=== PATIENT | female | born 1985 | race Hispanic/Latino ===

== ENCOUNTER 2017-04-15 16:24 | Emergency (ER) | payer OTHER ==
[~2017-04-15] VITALS: Ht 162.6 cm; Wt 93.2 kg
[~2017-04-15 16:24] MED LIST: CIPRO500 MG OR; CIPROFLOXACN500 MG PO; DILAUDID2 MG OR; LEVAQUIN500 MG PO; LORTAB 7.5 PO; LORTAB5 OR; NO; PHENERGAN25 MG RE; TRI-SPRINTEC; VISTARIL25 MG PO
[2017-04-15 17:21] LABS: URINE BILIRUBIN - DIPSTICK NEGATIVE (NEGATIVE); URINE BLOOD DIPSTICK MODERATE (NEGATIVE); URINE CLARITY TURBID; URINE COLOR YELLOW; URINE GLUCOSE - DIPSTICK NEGATIVE (NEGATIVE); URINE KETONE NEGATIVE (NEGATIVE); URINE LEUK ESTERASE NEGATIVE (Negative); URINE NITRITE - DIPSTICK POSITIVE (Negative); URINE PH 5.5 (4.5-8.0); URINE PROTEIN - DIPSTICK TRACE mg/dL (NEG-TRACE); URINE SPECIFIC GRAVITY >=1.030
[2017-04-15 17:22] LABS: HEMATOCRIT 38.1 % (37.0-47.0); HEMOGLOBIN 12.7 g/dl (12.0-16.0); IMMATURE GRANULOCYTES 1.1 % (0.0-1.0); MEAN CELL VOLUME 95.5 fL CALC (80.0-100.0); MEAN CORPUSCULAR HGB 31.8 pG CALC (26.0-32.0); MEAN CORPUSCULAR HGB CONC 33.3 g/L CALC (32.0-36.0); NEUT# 5.94 thou/uL (2.00-7.15); RED BLOOD COUNT 3.99 mill/uL (4.20-5.60); RED CELL DISTRI WIDTH 13.8 % (11.5-15.5)
[2017-04-15 17:41] LABS: URINE BACTERIA MANY hpf; URINE CALCIUM OXALATE CRYSTALS MANY lpf; URINE RBC 25-50 RBC/hpf (0-5); URINE SQUAMOUS EPITHELIAL CELL FEW EPI/hpf (0-FEW)
[2017-04-15 17:53] LABS: ALBUMIN 3.5 g/dL (3.2-5.0); ALKALINE PHOSPHATASE 113 u/l (38-126); ANION GAP 12 (6-22 (CALC)); BILIRUBIN, TOTAL 0.6 mg/dL (0.0-1.4); BUN 11 mg/dL (7-17); BUN/CREATININE RATIO 20 (12-20 (CALC)); CALCIUM 9.1 mg/dL (8.4-10.2); CARBON DIOXIDE 23 mmol/l (22-30); CHLORIDE 106 mmol/l (95-108); CREATININE 0.6 mg/dL (0.5-1.0); GFR > 60 ML/MIN (>=60 (CALC)); GFR FOR AFR.AMER. > 60 ML/MIN (>=60 (CALC)); GLUCOSE 79 mg/dL (65-105); POTASSIUM 4.1 mmol/l (3.5-5.1); SGOT/AST 35 u/l (14-36); SGPT/ALT 24 u/l (9-52); SODIUM 137 mmol/l (137-146); TOTAL PROTEIN 6.5 g/dL (6.3-8.2)
[2017-04-15 18:05] LABS: MYOGLOBIN 35 ng/mL (0 - 62)
[2017-04-15] MEDS ORDERED: KEFLEX500 M1 PO (19:02)
[2017-04-15 19:35] LABS: BARBITURATES NEGATIVE (NEGATIVE); COCAINE NEGATIVE (NEGATIVE); METHADONE NEGATIVE (NEGATIVE); OXCYCODONE NEGATIVE (NEGATIVE); TETRAHYDROCANNABIONOL NEGATIVE (NEGATIVE); TRICYLIC ANTIDEPRESSANTS NEGATIVE (NEGATIVE)
[2017-04-15 20:04] VITALS: BP 120/78
[2017-04-15 20:30] VITALS: BP 109/70
== END 2017-04-15 21:25 | disposition home or self-care (01) | DRG 781 ==
LOC: ED 16:24 → OBOP 17:33 → ED 19:18
PROVIDERS: Emergency Medicine
DX: O26.893 Other specified pregnancy related conditions, third trimester (principal); Z3A.35 35 weeks gestation of pregnancy; O23.43 Unspecified infection of urinary tract in pregnancy, third trimester

== ENCOUNTER 2017-05-20 21:23 | Inpatient (IN) | payer OTHER ==
[~2017-05-20] VITALS: Ht 165.1 cm; Wt 96.2 kg
[~2017-05-20 21:23] MED LIST changes: +KEFLEX500 M1 PO
[2017-05-20 22:09] LABS: URINE BILIRUBIN - DIPSTICK NEGATIVE (NEGATIVE); URINE BLOOD DIPSTICK MODERATE (NEGATIVE); URINE CLARITY SLIGHT CLOUDY; URINE COLOR YELLOW; URINE GLUCOSE - DIPSTICK NEGATIVE (NEGATIVE); URINE KETONE NEGATIVE (NEGATIVE); URINE LEUK ESTERASE NEGATIVE (NEGATIVE); URINE NITRITE - DIPSTICK NEGATIVE (Negative); URINE PH 5.5 (4.5-8.0); URINE PROTEIN - DIPSTICK NEGATIVE (NEG-TRACE); URINE UROBILINOGEN - DIPSTICK 0.2 E.U./dL (0.2)
[2017-05-20 22:20] LABS: BARBITURATES NEGATIVE (NEGATIVE); COCAINE NEGATIVE (NEGATIVE); METHADONE NEGATIVE (NEGATIVE); OXCYCODONE NEGATIVE (NEGATIVE); TETRAHYDROCANNABIONOL NEGATIVE (NEGATIVE); TRICYLIC ANTIDEPRESSANTS NEGATIVE (NEGATIVE); URINE BACTERIA FEW hpf; URINE RBC 0-2 RBC/hpf (0-5); URINE SQUAMOUS EPITHELIAL CELL FEW EPI/hpf (0-FEW); URINE WBC 0-2 WBC/hpf (0-5)
[2017-05-20 22:30] VITALS: BP 151/95
[2017-05-21] VITALS (14 sets, daily range): BP systolic 113–146; BP diastolic 64–87
[2017-05-21] MEDS ORDERED: PRENATAL1 TA1 (02:13)
[2017-05-21 08:35] LABS: HEMATOCRIT 40.8 % (37.0-47.0); IMMATURE GRANULOCYTES 0.7 % (0.0-1.0); MEAN CELL VOLUME 94.2 fL CALC (80.0-100.0); MEAN CORPUSCULAR HGB 32.3 pG CALC (26.0-32.0); MEAN CORPUSCULAR HGB CONC 34.3 g/L CALC (32.0-36.0); NEUT# 5.81 thou/uL (2.00-7.15); RED BLOOD COUNT 4.33 mill/uL (4.20-5.60); RED CELL DISTRI WIDTH 14.6 % (11.5-15.5)
[2017-05-21 08:54] LABS: ALBUMIN 3.3 g/dL (3.2-5.0); ALKALINE PHOSPHATASE 155 u/l (38-126); ANION GAP 11 (6-22 (CALC)); BILIRUBIN, TOTAL 0.5 mg/dL (0.0-1.4); BUN 6 mg/dL (7-17); BUN/CREATININE RATIO 10 (12-20 (CALC)); CALCIUM 9.1 mg/dL (8.4-10.2); CARBON DIOXIDE 21 mmol/l (22-30); CHLORIDE 107 mmol/l (95-108); CREATININE 0.6 mg/dL (0.5-1.0); GFR > 60 ML/MIN (>=60 (CALC)); GFR FOR AFR.AMER. > 60 ML/MIN (>=60 (CALC)); GLUCOSE 72 mg/dL (65-105); POTASSIUM 4.2 mmol/l (3.5-5.1); SGOT/AST 24 u/l (14-36); SGPT/ALT 29 u/l (9-52); SODIUM 135 mmol/l (137-146)
[2017-05-22 05:30] VITALS: BP 108/55
[2017-05-22 05:42] LABS: HEMATOCRIT 35.3 % (37.0-47.0); HEMOGLOBIN 11.9 g/dl (12.0-16.0); MEAN CELL VOLUME 95.7 fL CALC (80.0-100.0); MEAN CORPUSCULAR HGB 32.2 pG CALC (26.0-32.0); MEAN CORPUSCULAR HGB CONC 33.7 g/L CALC (32.0-36.0); NEUT# 5.97 thou/uL (2.00-7.15); RED BLOOD COUNT 3.69 mill/uL (4.20-5.60); RED CELL DISTRI WIDTH 14.8 % (11.5-15.5)
[2017-05-22 08:05] VITALS: BP 110/60
== END 2017-05-22 15:20 | disposition home or self-care (01) | DRG 775 ==
LOC: OBOP 21:23 → EDSTATUS 21:25 → OB 22:00 → OBOP 22:00 → OB 22:02 → OBOP 22:29 → OB 22:30
PROC: 10E0XZZ Delivery of Products of Conception, External Approach (ICD-10-PCS; principal; 2017-05-21)
DX: O80 Encounter for full-term uncomplicated delivery (principal); Z37.0 Single live birth; Z3A.39 39 weeks gestation of pregnancy

== ENCOUNTER 2022-02-27 23:47 | Emergency (ER) | payer OTHER ==
[~2022-02-27] VITALS: Ht 165.1 cm; Wt 97.3 kg
[~2022-02-27 23:47] MED LIST changes: +PRENATAL1 TA1
[2022-02-28 00:10] VITALS: BP 121/73
[2022-02-28 00:38] LABS: HEMATOCRIT 35.1 % (37.0-47.0); HEMOGLOBIN 11.4 g/dl (12.0-16.0); IMMATURE GRANULOCYTES 0.2 % (0.0-5.0); MEAN CELL VOLUME 93.1 fL CALC (80.0-100.0); MEAN CORPUSCULAR HGB 30.2 pG CALC (26.0-32.0); MEAN CORPUSCULAR HGB CONC 32.5 g/dL CAL (32.0-36.0); NEUT# 6.1 thou/uL (2.00-7.15); RED BLOOD COUNT 3.77 mill/uL (4.20-5.60); RED CELL DISTRI WIDTH 13.1 % (11.5-15.5)
[2022-02-28 00:41] LABS: URINE BILIRUBIN - DIPSTICK NEGATIVE (NEGATIVE); URINE BLOOD DIPSTICK SMALL (NEGATIVE); URINE COLOR YELLOW; URINE GLUCOSE - DIPSTICK NEGATIVE (NEGATIVE); URINE KETONE TRACE mg/dL (NEGATIVE); URINE PROTEIN - DIPSTICK NEGATIVE (NEG-TRACE); URINE SPECIFIC GRAVITY <=1.005; URINE UROBILINOGEN - DIPSTICK 0.2 E.U./dL (0.2)
[2022-02-28 00:44] LABS: URINE LEUK ESTERASE NEGATIVE (NEGATIVE); URINE NITRITE - DIPSTICK NEGATIVE (Negative)
[2022-02-28 00:49] LABS: URINE BACTERIA MODERATE hpf; URINE EPITHELIAL CELLS MODERATE EPI/hpf (0-FEW)
[2022-02-28 00:54] LABS: ALBUMIN 3.8 g/dL (3.2-5.0); ANION GAP 10 (6-22 (CALC)); BILIRUBIN, TOTAL 0.3 mg/dL (0.0-1.4); BUN 9 mg/dL (7-17); BUN/CREATININE RATIO 16 (12-20 (CALC)); CARBON DIOXIDE 23 mmol/l (22-30); CHLORIDE 103 mmol/l (95-108); CREATININE 0.5 mg/dL (0.5-1.0); GFR > 60 ML/MIN (>=60 (CALC)); GFR FOR AFR.AMER. > 60 ML/MIN (>=60 (CALC)); SGOT/AST 22 u/l (14-36); SODIUM 133 mmol/l (137-146); TOTAL PROTEIN 6.9 g/dL (6.3-8.2)
[2022-02-28] MEDS ORDERED: KEFLEX500 MG PO (00:56)
[2022-02-28 00:58] LABS: ALKALINE PHOSPHATASE 71 u/l (38-126)
[2022-02-28 01:14] VITALS: BP 121/73
== END 2022-02-28 02:05 | disposition home or self-care (01) | DRG 832 ==
LOC: ED 23:47
PROVIDERS: Emergency Medicine
DX: O23.42 Unspecified infection of urinary tract in pregnancy, second trimester (principal); N39.0 Urinary tract infection, site not specified; Z3A.14 14 weeks gestation of pregnancy

== ENCOUNTER 2023-02-22 19:45 | Emergency (ER) | payer OTHER ==
[2023-02-22] VITALS (14 sets, daily range): BP systolic 109–137; BP diastolic 54–82
[~2023-02-22] VITALS: Ht 165.1 cm; Wt 90.0 kg
[~2023-02-22 19:45] MED LIST changes: +KEFLEX500 MG PO
[2023-02-22 21:03] LABS: URINE BILIRUBIN - DIPSTICK NEGATIVE (NEGATIVE); URINE BLOOD DIPSTICK LARGE (NEGATIVE); URINE COLOR YELLOW; URINE GLUCOSE - DIPSTICK NEGATIVE (NEGATIVE); URINE KETONE NEGATIVE (NEGATIVE); URINE LEUK ESTERASE NEGATIVE (NEGATIVE); URINE PH 6.5 (4.5-8.0); URINE PROTEIN - DIPSTICK NEGATIVE (NEG-TRACE); URINE UROBILINOGEN - DIPSTICK 0.2 E.U./dL (0.2)
[2023-02-22 21:08] LABS: URINE NITRITE - DIPSTICK NEGATIVE (Negative)
[2023-02-22 21:11] LABS: BASO% 0.2 % (0-3); EOS% 0.6 % (0-8); HEMATOCRIT 37.8 % (37.0-47.0); HEMOGLOBIN 12.2 g/dl (12.0-16.0); IMMATURE GRANULOCYTES 0.1 % (0.0-5.0); LYMPH% 20.8 % (15-41); MEAN CELL VOLUME 91.1 fL CALC (80.0-100.0); MEAN CORPUSCULAR HGB 29.4 pG CALC (26.0-32.0); MEAN CORPUSCULAR HGB CONC 32.3 g/dL CAL (32.0-36.0); MONO% 7.2 % (2-13); NEUT# 7.65 thou/uL (2.00-7.15); NEUT% 71.1 % (42-76); RED BLOOD COUNT 4.15 mill/uL (4.20-5.60); RED CELL DISTRI WIDTH 13.2 % (11.5-15.5)
[2023-02-22 21:13] LABS: URINE BACTERIA RARE hpf; URINE SQUAMOUS EPITHELIAL CELL FEW EPI/hpf (0-FEW); URINE WBC 0-2 WBC/hpf (0-5)
[2023-02-22 21:29] LABS: ALBUMIN 4.2 g/dL (3.2-5.0); ANION GAP 13 (6-22 (CALC)); BILIRUBIN, TOTAL 0.4 mg/dL (0.02-1.3); BUN 13 mg/dL (7-17); BUN/CREATININE RATIO 21 (12-20 (CALC)); CARBON DIOXIDE 24 mmol/l (22-30); CHLORIDE 104 mmol/l (95-108); CREATININE 0.6 mg/dL (0.5-1.0); GFR FOR AFR.AMER. > 60 ML/MIN (>=60 (CALC)); GFR OTHER RACES > 60 ML/MIN (>=60 (CALC)); POTASSIUM 3.9 mmol/l (3.5-5.1); SGOT/AST 23 u/l (14-36); SODIUM 137 mmol/l (137-146); TOTAL PROTEIN 6.7 g/dL (6.3-8.2)
[2023-02-22 21:30] LABS: ALKALINE PHOSPHATASE 120 u/l (38-126)
[2023-02-22] MEDS ORDERED: AMOX/K CLAV875 M1 PO (23:43)
== END 2023-02-23 00:02 | disposition home or self-care (01) | DRG 603 ==
LOC: ED 19:45
PROVIDERS: Emergency Medicine
DX: L03.311 Cellulitis of abdominal wall (principal)

== ENCOUNTER 2023-02-26 20:00 | Emergency (ER) | payer OTHER ==
[~2023-02-26] VITALS: Ht 165.1 cm; Wt 87.0 kg
[~2023-02-26 20:00] MED LIST changes: +AMOX/K CLAV875 M1 PO
[2023-02-26] MEDS ORDERED: AMOX/K CLAV875 M1 PO (23:51)
[2023-02-26] MEDS ORDERED: PERCOCET 5/325M1 TAB PO (23:51)
[2023-02-26 23:58] VITALS: BP 130/93
== END 2023-02-27 | disposition home or self-care (01) | DRG 603 ==
LOC: ED 20:00
PROC: 0H9AXZZ Drainage of Inguinal Skin, External Approach (ICD-10-PCS; principal; 2023-02-26)
DX: L02.214 Cutaneous abscess of groin (principal); B95.7 Other staphylococcus as the cause of diseases classified elsewhere

== ENCOUNTER 2024-12-19 20:37 | Emergency (ER) | payer OTHER ==
[~2024-12-19] VITALS: Ht 165.1 cm; Wt 75.0 kg
[~2024-12-19 20:37] MED LIST changes: +PERCOCET 5/325M1 TAB PO
[2024-12-19 21:22] VITALS: BP 143/91
[2024-12-19] MEDS ORDERED: IBUPROFEN 800 MG/TAB PO ONE (21:50)
[2024-12-19] MEDS ORDERED: METHOCARBAMOL 500 MG/TAB PO ONE (21:50)
[2024-12-20 01:05] LABS: URINE BILIRUBIN - DIPSTICK Negative (NEGATIVE); URINE BLOOD DIPSTICK Large (NEGATIVE); URINE COLOR Yellow; URINE GLUCOSE - DIPSTICK Negative (NEGATIVE); URINE KETONE Negative (NEGATIVE); URINE LEUK ESTERASE Negative (NEGATIVE); URINE NITRITE - DIPSTICK Negative (Negative); URINE PH 5.5 (4.5-8.0); URINE PROTEIN - DIPSTICK 30 mg/dL (NEG-TRACE); URINE SPECIFIC GRAVITY 1.025; URINE UROBILINOGEN - DIPSTICK 0.2 E.U./dL (0.2)
[2024-12-20 01:11] LABS: URINE BACTERIA MODERATE hpf; URINE RBC 0-2 RBC/hpf (0-5); URINE SQUAMOUS EPITHELIAL CELL MANY EPI/hpf (0-FEW)
[2024-12-20] MEDS ORDERED: METHOCARBAMOL500 MG PO (01:28)
[2024-12-20] MEDS ORDERED: NAPROXEN500 MG PO (01:28)
[2024-12-21] MEDS ORDERED: BACTRIM DS1 TAB PO (11:24)
== END 2024-12-20 00:41 | disposition home or self-care (01) | DRG 556 ==
LOC: ED 20:37
PROVIDERS: Internal Medicine
DX: M25.572 Pain in left ankle and joints of left foot (principal); M25.562 Pain in left knee; M62.838 Other muscle spasm; R82.71 Bacteriuria

== ENCOUNTER 2024-12-22 19:57 | Emergency (ER) | payer OTHER ==
[~2024-12-22] VITALS: Ht 165.1 cm; Wt 104.5 kg
[2024-12-22] VITALS (8 sets, daily range): BP systolic 123–148; BP diastolic 79–96
[~2024-12-22 19:57] MED LIST changes: +BACTRIM DS1 TAB PO; +METHOCARBAMOL500 MG PO; +NAPROXEN500 MG PO
[2024-12-22] MEDS ORDERED: KETOROLAC TROMETHAMINE 30 MG/ML SDV IV ONE (20:35)
[2024-12-22 20:42] LABS: URINE BILIRUBIN - DIPSTICK Negative (NEGATIVE); URINE BLOOD DIPSTICK Large (NEGATIVE); URINE COLOR Yellow; URINE GLUCOSE - DIPSTICK Negative (NEGATIVE); URINE KETONE Trace mg/dL (NEGATIVE); URINE LEUK ESTERASE Negative (NEGATIVE); URINE NITRITE - DIPSTICK Positive (Negative); URINE PH 5.5 (4.5-8.0); URINE PROTEIN - DIPSTICK 30 mg/dL (NEG-TRACE); URINE SPECIFIC GRAVITY >=1.030; URINE UROBILINOGEN - DIPSTICK 0.2 E.U./dL (0.2)
[2024-12-22 20:48] LABS: URINE BACTERIA MANY hpf; URINE SQUAMOUS EPITHELIAL CELL FEW EPI/hpf (0-FEW)
[2024-12-22 20:55] LABS: BASO% 0.5 % (0-3); EOS% 2.3 % (0-8); HEMOGLOBIN 12.8 g/dl (12.0-16.0); IMMATURE GRANULOCYTES 0.1 % (0.0-5.0); LYMPH% 31.4 % (15-41); MEAN CELL VOLUME 93.5 fL CALC (80.0-100.0); MEAN CORPUSCULAR HGB 29.9 pG CALC (26.0-32.0); MONO% 7.7 % (2-13); NEUT# 5.01 thou/uL (2.00-7.15); RED BLOOD COUNT 4.28 mill/uL (4.20-5.60)
[2024-12-22] MEDS ORDERED: ONDANSETRON HCl 4 MG/2 ML SDV IV ONE (20:55)
[2024-12-22 21:06] LABS: ALBUMIN 4.1 g/dL (3.2-5.0); BILIRUBIN, TOTAL 0.5 mg/dL (0.02-1.3); CREATININE 0.7 mg/dL (0.5-1.0)
== END 2024-12-22 22:34 | disposition home or self-care (01) | DRG 690 ==
LOC: ED 19:57
PROVIDERS: Family Medicine
DX: N39.0 Urinary tract infection, site not specified (principal); B96.20 Unspecified Escherichia coli [E. coli] as the cause of diseases classified elsewhere
CPT/HCPCS: J0696; J2405